=== PATIENT | female | born 1965 | race African-American/Black ===

== ENCOUNTER 2023-08-06 23:13 | Inpatient (IN) | payer MEDICAID, OTHER ==
[~2023-08-06] VITALS: Ht 165.1 cm; Wt 55.6 kg
[~2023-08-06 23:13] MED LIST: AMOX1TAB15 MT
[2023-08-06 23:14] VITALS: RESP 38
[2023-08-06] MEDS ORDERED: ONDANSETRON HCL 4MG/2ML INJ IV STA (23:15)
[2023-08-06] MEDS ORDERED: LABETALOL HCL VIAL 20 MG/4 ML VIAL IV ONE (23:15)
[2023-08-06 23:32] LABS: BASOPHILS % 0.3 % (0.0-2.0); EOSINOPHILS % 3.6 % (0.0-5.0); HEMATOCRIT. 24.4 % (36.0-48.0); HEMOGLOBIN. 7.6 g/dL (12.0-16.0); LYMPHOCYTES % 49.7 % (20.0-50.0); MEAN CORPUSCULAR HEMOGLOBIN 26.9 pg (28.0-32.0); MEAN CORPUSCULAR HGB CONC 31.3 g/dL (31.0-37.0); MEAN CORPUSCULAR VOLUME 85.9 fL (81.0-99.0); MEAN PLATELET VOLUME 6.5 fl (7.4-10.4); MONOCYTES % 7.2 % (2.0-8.0); NEUTROPHILS % 39.2 % (40.0-76.0); PLATELET 255 x1000/uL (130-400); RED BLOOD CELL COUNT 2.84 mill/uL (4.2-5.4); RED CELL DISTRIBUTION WIDTH 18.2 % (11.6-14.6); WHITE BLOOD COUNT 11.6 x1000/uL (4.5-11.0)
[2023-08-06 23:41] LABS: CHLORIDE 106 mEq/L (98-107); INDEX HEMOLYSI 2 (1-3); INDEX ICTERIC 1 (1-4); INDEX LIPEMIC 1 (1-3); POTASSIUM 4.7 mEq/L (3.5-5.1); SODIUM 142 mEq/L (136-145)
[2023-08-06 23:50] LABS: ALANINE AMINOTRANSFERASE 17 IU/L (13-61); ALBUMIN 3.1 g/dL (3.4-5.0); ASPARTATE AMINOTRANSFERASE 31 IU/L (15-37); BILIRUBIN TOTAL 0.3 mg/dL (0.1-1.0); CALCIUM 6.7 mg/dL (8.5-10.1); CARBON DIOXIDE 25 mEq/L (21-32); GLUCOSE 172 mg/dL (70-105); PROTEIN TOTAL 6.8 g/dL (6.0-8.3); UREA NITROGEN BLOOD 43 mg/dL (7-21)
[2023-08-06 23:52] LABS: CREATININE 8.4 mg/dL (0.6-1.3)
[2023-08-06 23:53] LABS: LACTIC ACID 4.4 mmol/L (0.4-2.0)
[2023-08-07] VITALS (23 sets, daily range): BP systolic 113–193; BP diastolic 33–126; PULSE 80–105; RESP 15–20; TEMP 97.2–98.8; O2SAT 98
[2023-08-07 00:04] LABS: TROPONIN I HIGH SENSITIVITY 16 ng/L (<54)
[2023-08-07 00:12] LABS: NT PRO B-TYPE NATRIURETIC PEP > 175000 pg/mL (5-125)
[2023-08-07] MEDS ORDERED: LABETALOL 5MG/ML SYR 20 MG/4 ML SYRINGE IV NR (00:15)
[2023-08-07] MEDS ORDERED: LORAZEPAM 2MG/ML CPJ IV NR (00:15)
[2023-08-07 00:47] LABS: BG BASE EXCESS -0.4 mmol/L (-2.0-2.0); BG CARBOXYHEMOGLOBIN 0.6 % (0.5-1.5); BG DEOXYHEMOGLOBIN 0.6 % (0.0-5.0); BG FRACTION INSPIRED OXYGEN 100; BG HCO3 ACT 26.9 mmol/L (22.0-26.0); BG METHEMOGLOBIN 0.2 % (0.0-1.5); BG OXYGEN SATURATION 99.4 % (92.0-98.5); BG OXYHEMOGLOBIN 98.6 % (94.0-97.0); BG PCO2 59.9 mmHg (35.0-45.0); BG PO2 513.2 mmHg (75.0-100.0); BG SAMPLE SITE RIGHT RADIAL; BG TOTAL HEMOGLOBIN 8.4 g/dL (12.0-18.0); BG VENT MODE MASK - BIPAP
[2023-08-07 01:46] LABS: HEPATITIS B SURFACE AB 107.8 mIU/mL
[2023-08-07 01:58] LABS: HEPATITIS B SURFACE ANTIGEN NEGATIVE
[2023-08-07] MEDS ORDERED: CLONIDINE 0.1MG TABLET PO PRN (06:45)
[2023-08-07] MEDS: HYDRALAZINE HCL 100MG TABLET PO SCH ×4 (09:00→18:12)
[2023-08-07] MEDS: AMLODIPINE 10MG TABLET PO SCH ×2 (09:00→10:17)
[2023-08-07] MEDS: METOPROLOL TARTRATE 50MG TABLET PO SCH ×3 (09:00→21:46)
[2023-08-07] MEDS: PANTOPRAZOLE 40MG DR TABLET PO SCH ×2 (09:00→10:17)
[2023-08-07 11:33] LABS: BG BASE EXCESS 2.3 mmol/L (-2.0-2.0); BG CARBOXYHEMOGLOBIN 0.8 % (0.5-1.5); BG DEOXYHEMOGLOBIN 5.7 % (0.0-5.0); BG FRACTION INSPIRED OXYGEN 30; BG HCO3 ACT 27.4 mmol/L (22.0-26.0); BG METHEMOGLOBIN 0.3 % (0.0-1.5); BG OXYGEN SATURATION 94.2 % (92.0-98.5); BG OXYHEMOGLOBIN 93.2 % (94.0-97.0); BG PCO2 45.1 mmHg (35.0-45.0); BG PH 7.401 (7.350-7.450); BG PO2 78.6 mmHg (75.0-100.0); BG SAMPLE SITE LEFT RADIAL; BG TOTAL HEMOGLOBIN 6.8 g/dL (12.0-18.0); BG TOTAL RESPIRATORY RATE 19 b/min; BG VENT MODE MASK - BIPAP
[2023-08-07 11:37] LABS: POTASSIUM 3.9 mEq/L (3.5-5.1)
[2023-08-07 11:48] LABS: CREATININE 3.6 mg/dL (0.6-1.3); PHOSPHORUS 2.2 mg/dL (2.5-4.9)
[2023-08-07 11:59] LABS: CALCIUM 5.1 mg/dL (8.5-10.1)
[2023-08-07] MEDS: NICOTINE 14MG PATCH TD SCH (13:12)
[2023-08-07 13:44] LABS: BASOPHILS % 0.5 % (0.0-2.0); EOSINOPHILS % 2.2 % (0.0-5.0); HEMATOCRIT. 21.2 % (36.0-48.0); LYMPHOCYTES % 20.5 % (20.0-50.0); MEAN CORPUSCULAR HEMOGLOBIN 27.6 pg (28.0-32.0); MEAN CORPUSCULAR HGB CONC 33.1 g/dL (31.0-37.0); MEAN CORPUSCULAR VOLUME 83.4 fL (81.0-99.0); MEAN PLATELET VOLUME 6.8 fl (7.4-10.4); MONOCYTES % 8.5 % (2.0-8.0); NEUTROPHILS % 68.3 % (40.0-76.0); PLATELET 175 x1000/uL (130-400); RED BLOOD CELL COUNT 2.54 mill/uL (4.2-5.4); RED CELL DISTRIBUTION WIDTH 17.6 % (11.6-14.6); WHITE BLOOD COUNT 6.9 x1000/uL (4.5-11.0)
[2023-08-07] MEDS: IPRATROPIUM/ALBUTEROL 0.5-3(2.5)MG/3ML NEB HHN SCH (20:23)
[2023-08-08] VITALS (18 sets, daily range): BP systolic 113–143; BP diastolic 82–103; PULSE 80–90; RESP 13–23; TEMP 97.4–99.3; O2SAT 97–98
[2023-08-08] MEDS: IPRATROPIUM/ALBUTEROL 0.5-3(2.5)MG/3ML NEB HHN SCH ×4 (01:54→20:55)
[2023-08-08] MEDS: PANTOPRAZOLE 40MG DR TABLET PO SCH (08:37)
[2023-08-08] MEDS: METOPROLOL TARTRATE 50MG TABLET PO SCH ×2 (08:37→20:17)
[2023-08-08] MEDS: HYDRALAZINE HCL 100MG TABLET PO SCH ×3 (08:37→16:56)
[2023-08-08] MEDS: AMLODIPINE 10MG TABLET PO SCH (08:37)
[2023-08-08] MEDS: NICOTINE 14MG PATCH TD SCH (08:40)
[2023-08-08 10:11] LABS: HEMATOCRIT 26.7 % (36.0-48.0); HEMOGLOBIN 8.7 g/dL (12.0-16.0)
[2023-08-08 17:25] LABS: POTASSIUM 5.3 mEq/L (3.5-5.1)
[2023-08-09] VITALS (27 sets, daily range): BP systolic 132–158; BP diastolic 84–112; PULSE 79–143; RESP 15–20; TEMP 97.2–98.9; O2SAT 98–99
[2023-08-09] MEDS: IPRATROPIUM/ALBUTEROL 0.5-3(2.5)MG/3ML NEB HHN SCH ×4 (01:09→20:57)
[2023-08-09 06:15] LABS: BASOPHILS % 0.7 % (0.0-2.0); DIFFERENTIAL COMMENT 0; EOSINOPHILS % 3.6 % (0.0-5.0); HEMATOCRIT. 23.2 % (36.0-48.0); HEMOGLOBIN. 7.8 g/dL (12.0-16.0); LYMPHOCYTES % 26.4 % (20.0-50.0); MEAN CORPUSCULAR HEMOGLOBIN 28.5 pg (28.0-32.0); MEAN CORPUSCULAR HGB CONC 33.5 g/dL (31.0-37.0); MEAN CORPUSCULAR VOLUME 85.3 fL (81.0-99.0); MEAN PLATELET VOLUME 6.9 fl (7.4-10.4); MONOCYTES % 10.9 % (2.0-8.0); NEUTROPHILS % 58.4 % (40.0-76.0); PLATELET 169 x1000/uL (130-400); RED BLOOD CELL COUNT 2.72 mill/uL (4.2-5.4); RED CELL DISTRIBUTION WIDTH 16.9 % (11.6-14.6); WHITE BLOOD COUNT 5.6 x1000/uL (4.5-11.0)
[2023-08-09] MEDS: HYDRALAZINE HCL 100MG TABLET PO SCH ×3 (08:58→22:08)
[2023-08-09] MEDS: PANTOPRAZOLE 40MG DR TABLET PO SCH (08:58)
[2023-08-09] MEDS: METOPROLOL TARTRATE 50MG TABLET PO SCH ×2 (08:59→22:09)
[2023-08-09] MEDS: AMLODIPINE 10MG TABLET PO SCH (08:59)
[2023-08-09] MEDS: NICOTINE 14MG PATCH TD SCH (09:13)
[2023-08-09 10:25] LABS: POTASSIUM 5.6 mEq/L (3.5-5.1)
[2023-08-09 11:16] LABS: BG BASE EXCESS -0.1 mmol/L (-2.0-2.0); BG CARBOXYHEMOGLOBIN 0.3 % (0.5-1.5); BG DEOXYHEMOGLOBIN 6.3 % (0.0-5.0); BG FRACTION INSPIRED OXYGEN 21; BG HCO3 ACT 24.6 mmol/L (22.0-26.0); BG METHEMOGLOBIN 0.3 % (0.0-1.5); BG OXYGEN SATURATION 93.7 % (92.0-98.5); BG OXYHEMOGLOBIN 93.1 % (94.0-97.0); BG PCO2 40.3 mmHg (35.0-45.0); BG PH 7.403 (7.350-7.450); BG PO2 73.6 mmHg (75.0-100.0); BG SAMPLE SITE RIGHT BRACHIAL; BG TOTAL HEMOGLOBIN 8.6 g/dL (12.0-18.0); BG VENT MODE ROOM AIR
[2023-08-09 11:27] LABS: CREATININE 9.8 mg/dL (0.6-1.3)
[2023-08-09] MEDS ORDERED: AMLO10TA80 PO (12:45)
[2023-08-09] MEDS ORDERED: HYDR100T26 PO (12:45)
[2023-08-09] MEDS ORDERED: METO-539 PO (12:45)
[2023-08-10] VITALS (18 sets, daily range): BP systolic 115–148; BP diastolic 72–96; PULSE 69–82; RESP 16–24; TEMP 97.4–99; O2SAT 97
[2023-08-10] MEDS: IPRATROPIUM/ALBUTEROL 0.5-3(2.5)MG/3ML NEB HHN SCH ×4 (01:34→21:02)
[2023-08-10 06:50] LABS: HEPATITIS B SURFACE ANTIGEN NEGATIVE
[2023-08-10] MEDS: METOPROLOL TARTRATE 50MG TABLET PO SCH ×2 (09:27→22:00)
[2023-08-10] MEDS: PANTOPRAZOLE 40MG DR TABLET PO SCH (09:28)
[2023-08-10] MEDS: AMLODIPINE 10MG TABLET PO SCH (09:28)
[2023-08-10] MEDS: HYDRALAZINE HCL 100MG TABLET PO SCH ×3 (09:28→21:56)
[2023-08-10] MEDS: NICOTINE 14MG PATCH TD SCH (09:33)
[2023-08-10 17:41] LABS: BASOPHILS % 0.5 % (0.0-2.0); DIFFERENTIAL COMMENT 0; EOSINOPHILS % 3.7 % (0.0-5.0); HEMATOCRIT. 25.2 % (36.0-48.0); LYMPHOCYTES % 19.8 % (20.0-50.0); MEAN CORPUSCULAR HEMOGLOBIN 27.2 pg (28.0-32.0); MEAN PLATELET VOLUME 7.6 fl (7.4-10.4); MONOCYTES % 9.3 % (2.0-8.0); NEUTROPHILS % 66.7 % (40.0-76.0); PLATELET 207 x1000/uL (130-400); RED BLOOD CELL COUNT 2.96 mill/uL (4.2-5.4); RED CELL DISTRIBUTION WIDTH 16.8 % (11.6-14.6); WHITE BLOOD COUNT 7.1 x1000/uL (4.5-11.0)
[2023-08-10 17:56] LABS: POTASSIUM 5.5 mEq/L (3.5-5.1)
[2023-08-10 18:03] LABS: CALCIUM 7.3 mg/dL (8.5-10.1)
[2023-08-10 18:29] LABS: CREATININE 8.2 mg/dL (0.6-1.3)
[2023-08-10] MEDS ORDERED: SODIUM POLYSTYRENE SULFONATE 15 G/60 ML BOT PO NR (20:00)
[2023-08-10 20:10] LABS: HEPATITIS C VIR.AB 0.06 INDEXVAL (0.00-0.80)
[2023-08-10 20:11] LABS: HEPATITIS B CORE AB IGM NEGATIVE
[2023-08-10 20:12] LABS: HEPATITIS A AB IGM NEGATIVE (NEGATIVE)
[2023-08-11] VITALS (21 sets, daily range): BP systolic 112–154; BP diastolic 16–101; PULSE 77–98; RESP 16–22; TEMP 97.5–99.9; O2SAT 94–98
[2023-08-11] MEDS: IPRATROPIUM/ALBUTEROL 0.5-3(2.5)MG/3ML NEB HHN SCH ×3 (01:13→20:04)
[2023-08-11] MEDS: NICOTINE 14MG PATCH TD SCH (08:36)
[2023-08-11] MEDS: METOPROLOL TARTRATE 50MG TABLET PO SCH ×2 (08:36→21:31)
[2023-08-11] MEDS: PANTOPRAZOLE 40MG DR TABLET PO SCH (08:36)
[2023-08-11 08:37] LABS: BASOPHILS % 0.3 % (0.0-2.0); HEMATOCRIT. 22.4 % (36.0-48.0); HEMOGLOBIN. 7.5 g/dL (12.0-16.0); LYMPHOCYTES % 18.8 % (20.0-50.0); MEAN CORPUSCULAR HEMOGLOBIN 28.1 pg (28.0-32.0); MEAN CORPUSCULAR HGB CONC 33.5 g/dL (31.0-37.0); MEAN PLATELET VOLUME 7.1 fl (7.4-10.4); MONOCYTES % 11.5 % (2.0-8.0); NEUTROPHILS % 66.4 % (40.0-76.0); PLATELET 183 x1000/uL (130-400); RED BLOOD CELL COUNT 2.66 mill/uL (4.2-5.4); WHITE BLOOD COUNT 7.1 x1000/uL (4.5-11.0)
[2023-08-11] MEDS: HYDRALAZINE HCL 100MG TABLET PO SCH ×3 (08:37→17:00)
[2023-08-11] MEDS: AMLODIPINE 10MG TABLET PO SCH (08:37)
[2023-08-11 10:29] LABS: POTASSIUM 5.2 mEq/L (3.5-5.1)
[2023-08-11 10:39] LABS: CALCIUM 7.1 mg/dL (8.5-10.1)
[2023-08-11 12:23] LABS: CREATININE 9.5 mg/dL (0.6-1.3)
[2023-08-12] VITALS (14 sets, daily range): BP systolic 128–158; BP diastolic 76–97; PULSE 79–89; RESP 17–20; TEMP 97.6–98.1; O2SAT 93–98
[2023-08-12] MEDS: IPRATROPIUM/ALBUTEROL 0.5-3(2.5)MG/3ML NEB HHN SCH ×3 (02:50→14:54)
[2023-08-12 05:55] LABS: BASOPHILS % 0.4 % (0.0-2.0); EOSINOPHILS % 2.3 % (0.0-5.0); HEMATOCRIT. 23.4 % (36.0-48.0); HEMOGLOBIN. 7.9 g/dL (12.0-16.0); LYMPHOCYTES % 17.7 % (20.0-50.0); MEAN CORPUSCULAR HEMOGLOBIN 28.4 pg (28.0-32.0); MEAN CORPUSCULAR HGB CONC 33.7 g/dL (31.0-37.0); MEAN CORPUSCULAR VOLUME 84.4 fL (81.0-99.0); MEAN PLATELET VOLUME 7.3 fl (7.4-10.4); MONOCYTES % 11.9 % (2.0-8.0); NEUTROPHILS % 67.7 % (40.0-76.0); PLATELET 189 x1000/uL (130-400); RED BLOOD CELL COUNT 2.78 mill/uL (4.2-5.4); RED CELL DISTRIBUTION WIDTH 17.2 % (11.6-14.6); WHITE BLOOD COUNT 6.8 x1000/uL (4.5-11.0)
[2023-08-12 06:58] LABS: POTASSIUM 4.4 mEq/L (3.5-5.1)
[2023-08-12 07:03] LABS: CALCIUM 7.7 mg/dL (8.5-10.1)
[2023-08-12 07:47] LABS: CREATININE 6.7 mg/dL (0.6-1.3)
[2023-08-12] MEDS: NICOTINE 14MG PATCH TD SCH (08:28)
[2023-08-12] MEDS: PANTOPRAZOLE 40MG DR TABLET PO SCH (08:29)
[2023-08-12] MEDS: METOPROLOL TARTRATE 50MG TABLET PO SCH (08:36)
[2023-08-12] MEDS: AMLODIPINE 10MG TABLET PO SCH (08:36)
[2023-08-12] MEDS: HYDRALAZINE HCL 100MG TABLET PO SCH ×3 (08:36→18:14)
[2023-08-12] MEDS ORDERED: IPRATROPIUM/ALBUTEROL 0.5-3(2.5)MG/3ML NEB ONE (13:35)
== END 2023-08-13 04:10 | disposition home or self-care (01) | DRG 194 ==
LOC: ER 23:13 → MICUSO 08-07 01:48 → EDBEDREQTM 08-07 01:51 → EDBEDREQ 08-07 01:51 → EDBEDREQSVC 08-07 03:08 → 5EST 08-07 05:00
PROVIDERS: ADMIT Internal Medicine; ATTEND Internal Medicine
PROC: 5A09357 Assistance with Respiratory Ventilation, Less than 24 Consecutive Hours, Continuous Positive Airway Pressure (ICD-10-PCS; principal; 2023-08-07)
PROC: 5A1D70Z Performance of Urinary Filtration, Intermittent, Less than 6 Hours Per Day (ICD-10-PCS; 2023-08-07)
PROC: 30233N1 Transfusion of Nonautologous Red Blood Cells into Peripheral Vein, Percutaneous Approach (ICD-10-PCS; 2023-08-07)
PROC: 5A1D70Z Performance of Urinary Filtration, Intermittent, Less than 6 Hours Per Day (ICD-10-PCS; 2023-08-08)
PROC: 5A1D70Z Performance of Urinary Filtration, Intermittent, Less than 6 Hours Per Day (ICD-10-PCS; 2023-08-11)
PROC: 5A1D70Z Performance of Urinary Filtration, Intermittent, Less than 6 Hours Per Day (ICD-10-PCS; 2023-08-12)
DX: I13.2 Hypertensive heart and chronic kidney disease with heart failure and with stage 5 chronic kidney disease, or end stage renal disease (principal); J96.01 Acute respiratory failure with hypoxia; J96.02 Acute respiratory failure with hypercapnia; E44.1 Mild protein-calorie malnutrition; D63.8 Anemia in other chronic diseases classified elsewhere; E83.51 Hypocalcemia; E88.09 Other disorders of plasma-protein metabolism, not elsewhere classified; J44.1 Chronic obstructive pulmonary disease with (acute) exacerbation; I50.9 Heart failure, unspecified; N18.6 End stage renal disease; E78.5 Hyperlipidemia, unspecified; Z68.20 Body mass index [BMI] 20.0-20.9, adult; F17.210 Nicotine dependence, cigarettes, uncomplicated; Z99.2 Dependence on renal dialysis; J44.9 Chronic obstructive pulmonary disease, unspecified; I16.1 Hypertensive emergency
CPT/HCPCS: 36415; 36600; 71045; 80048; 80051; 80053; 82375; 82805; 83605; 83880; 84100; 84484; 85014; 85018; 85025; 86705; 86706; 86709; 86803; 86850; 86900; 86920; 87340; 90935; 93005; 94640; 94660; 99291; J2060; J2405; J3490; P9016